=== PATIENT | male | born 1955 | race Caucasian/White ===

== ENCOUNTER → 2020-07-26 | Outpatient (CLI) | payer OTHER ==
--- NOTE | 2020-07-26 16:03 | CONS ---
CONSULTATION DATE OF SERVICE: 07/26/2020 This 64-year-old gentleman has been evaluated in the sleep center for possible obstructive sleep apnea-hypopnea syndrome. HISTORY OF PRESENT ILLNESS/SLEEP WAKE EVALUATION: Patient usual sleep schedule from 10 p.m. to 5 a.m. Usually no problems with falling asleep. No TV in bedroom. He usually sleeps on the side position with snoring and awakenings from sleep 3 times with nocturia. Positive history of restless leg symptoms while falling asleep. No history of hypnagogic hallucinations, sleep paralysis or cataplexy. During the day, patient takes nap usually around noontime. [place] Sleepiness Scale is 3. The patient sleeps by himself in room because of significant amount of movements during the night. PAST MEDICAL HISTORY: Positive for hypertension, knee arthritis, acid reflux, diabetes mellitus. PAST SURGICAL HISTORY: Left big toe amputation, sacrum abscess. MEDICATIONS: 1. Metformin 1000 mg twice a day. 2. Gabapentin 400 mg 4 times a day. 3. Omeprazole 20 mg once a day. 4. Lisinopril 20 mg once a day. 5. Furosemide 20 mg once a day. 6. Aspirin 325 mg once a day. 7. Zolpidem 5 mg 1-1/2 tablets at bedtime. 8. NovoLog. 9. Lantus. 10.Terazosin 2 mg at bedtime. SOCIAL HISTORY: Positive for smoking for about 5 pack years, quit in 1993. Alcohol consumption none presently smokes cannabis. REVIEW OF SYSTEMS: Multiple awakenings from sleep. Episodes of sleepiness during the day. PHYSICAL EXAMINATION: GENERAL: gentleman without distress. VITAL SIGNS: BP 140/68, HR 94, RR 15, height 6 feet 0 inches, weight 289, BMI 39.1, temperature 98.3, oxygen saturation at room air 97%. HEENT: PERRLA, EOMI. Oropharynx extremely low position of soft palate. Mallampati 4. NECK: Wide neck 20 inches in circumference. LUNGS: Clear to percussion and to auscultation. Good air exchange. No wheezing or rhonchi. HEART: S1, S2 regular. No murmurs, gallops, or rubs. ABDOMEN: Obese. EXTREMITIES: Status post amputation of left big toe. GERMAN TUTOR: Awake, alert, and oriented X3. Cranial nerves 2 to 7 intact. There is no fasciculation or atrophy. noted. No focal deficits observed. IMPRESSION: 1. Snoring, multiple awakenings from sleep with nocturia, extremely low position of soft palate, Mallampati IV, wide neck 20 inches in circumference, episodes of sleepiness during the day, obstructive sleep apnea-hypopnea syndrome. 2. Obesity, body mass index 39.1. 3. Hypertension. 4. Knee arthritis. 5. Acid reflux. 6. Diabetes mellitus. 7. Restless leg symptoms. 8. Status post left big toe amputation: 9. History of sacrum abscess treated surgically. PLAN: 1. Polysomnography for evaluation of patient's breathing during sleep. 2. CPAP/BiPAP titration if sleep study confirms obstructive sleep apnea-hypopnea syndrome. 3. Preferable position during sleep on the side. 4. No driving if patient feels any sleepiness. 5. I will see patient for follow up visit to explain results of testing and following plan. Thank you very much for referring this patient for consultation. Sincerely, Oscar Davis MD, PhD, FAASM Diplomat of [employer] [employer] [facility] [place] MMODL / IJN: [id number] /
== END | disposition home or self-care (01) ==
LOC: SLEEP 14:16
PROVIDERS: ATTEND Internal Medicine
DX: G47.33 Obstructive sleep apnea (adult) (pediatric) (principal); E66.9 Obesity, unspecified; I10 Essential (primary) hypertension; G25.81 Restless legs syndrome; M17.10 Unilateral primary osteoarthritis, unspecified knee; K21.9 Gastro-esophageal reflux disease without esophagitis; E11.9 Type 2 diabetes mellitus without complications; Z89.412 Acquired absence of left great toe; Z79.891 Long term (current) use of opiate analgesic; Z79.899 Other long term (current) drug therapy; Z79.82 Long term (current) use of aspirin; Z68.39 Body mass index [BMI] 39.0-39.9, adult; Z79.4 Long term (current) use of insulin; Z87.891 Personal history of nicotine dependence
CPT/HCPCS: 99211